=== PATIENT | male | born 1960 | race African-American/Black ===

== ENCOUNTER 2020-01-11 13:07 | Inpatient (IN) ==
[2020-01-11] MEDS ORDERED: SODIUM CHLORIDE 0.9% 1,000 ML IV STA (13:35)
[2020-01-11] MEDS ORDERED: ONDANSETRON 4 MG/2 ML VIAL IV STA (13:35)
[2020-01-11] MEDS ORDERED: PANTOPRAZOLE 40 MG VIAL IV STA (13:35)
[2020-01-11] MEDS ORDERED: METOCLOPRAMIDE 10 MG/2 ML VIAL IV STA (13:35)
[2020-01-11 15:04] LABS: Basophils # 0.1 10*3/uL (0.0-0.2); Basophils % 0.6 % (0.0-0.8); Eosinophils % 0.1 % (0.00-10.9); Hematocrit 35.2 VOL% (42.0-52.0); Hemoglobin 11.5 GM/DL (14.0-18.0); Immature Granulocytes % 0.2 %; Immature Granulocytes Absolute 0.02 #; Lymphocytes % 11.2 % (21.2-54.2); Mean Corpuscular HGB Conc 32.7 GM/DL (32-36); Mean Corpuscular Volume 81.3 FL (87-102); Mean Platelet Volume 10.5 FL (9.6-12.0); Monocytes % 6.1 % (1.7-12.7); Neutrophils % 81.8 % (38.7-73.9); Platelet Count 161 T/CUMM (130-400); Red Blood Count 4.33 MC/CUMM (3.8-5.5); Red Cell Distribution Width 11.8 % (9.3-17.3); White Blood Count 8.6 T/CUMM (4-12)
[2020-01-11 15:13] LABS: PT Patient Result 10.9 SECS (9.8-11.9); Partial Thromboplastin Time 23.4 SECS (23.9-33.8)
[2020-01-11 15:23] LABS: Alanine Aminotransferase 31 U/L (16-61); Albumin 3.6 G/DL (3.4-5.0); Alkaline Phosphatase 66 U/L (45-117); Aspartate Amino Transferase 18 U/L (0-37); Blood Urea Nitrogen 32 MG/DL (7-18); Calcium 8.9 MG/DL (8.5-10.1); Estimated Glom Filtration Rate 110 ML/MIN; Ferritin 256.7 ng/ml (26-388); Glucose 100 MG/DL (74-106); Osmolality,Calculated 283.5 MOS/KG (273-304); Total Protein 6.8 G/DL (6.4-8.3)
[2020-01-11 15:24] LABS: Troponin I 0.121 NG/ML (0.00-0.045)
[2020-01-11] MEDS ORDERED: DOCUSATE SODIUM 100 MG CAPSULE PO PRN (15:56)
[2020-01-11] MEDS ORDERED: GLUCAGON 1 MG VIAL IM PRN (15:56)
[2020-01-11] MEDS ORDERED: ONDANSETRON 4 MG/2 ML VIAL IV PRN (15:56)
[2020-01-11] MEDS ORDERED: DEXTROSE 10% 250 ML BAG IV PRN (15:56)
[2020-01-11] MEDS ORDERED: ACETAMINOPHEN 325 MG TABLET PO PRN (15:56)
[2020-01-11 16:32] LABS: Risk Ratio 3.75; Thyroid Stimulating Hormone 0.42 uIU/ml (0.358-3.74)
[2020-01-11 16:52] LABS: % Iron Saturation 26.4 % (18-50); Ferritin 260.2 ng/ml (26-388)
[2020-01-11] MEDS: SODIUM CHLORIDE 0.9% 1,000 ML IV SCH (20:20)
[2020-01-11] MEDS ORDERED: PANTOPRAZOLE 40 MG TABLET PO SCH (21:00)
[2020-01-12 04:48] LABS: Basophils % 0.8 % (0.0-0.8); Eosinophils # 0.1 10*3/uL (0.0-0.87); Eosinophils % 2.5 % (0.00-10.9); Hematocrit 29.5 VOL% (42.0-52.0); Hemoglobin 9.4 GM/DL (14.0-18.0); Immature Granulocytes % 0.2 %; Immature Granulocytes Absolute 0.01 #; Lymphocytes # 1.8 10*3/uL (1.4-4.0); Mean Corpuscular HGB Conc 31.9 GM/DL (32-36); Mean Corpuscular Volume 82.9 FL (87-102); Neutrophils % 51.5 % (38.7-73.9); Platelet Count 133 T/CUMM (130-400); Red Blood Count 3.56 MC/CUMM (3.8-5.5); Red Cell Distribution Width 11.9 % (9.3-17.3); White Blood Count 4.9 T/CUMM (4-12)
[2020-01-12] MEDS: SODIUM CHLORIDE 0.9% 1,000 ML IV SCH ×2 (05:00→12:55)
[2020-01-12 05:08] LABS: Albumin 2.9 G/DL (3.4-5.0); Bilirubin,Total 0.8 MG/DL (0.2-1.0); Calcium 8.3 MG/DL (8.5-10.1); Osmolality,Calculated 288.8 MOS/KG (273-304); Total Protein 5.7 G/DL (6.4-8.3)
[2020-01-12 05:25] LABS: Hypochromasia 1+; Platelet Estimate Normal
[2020-01-12] MEDS ORDERED: PANTOPRAZOLE 40 MG TABLET PO SCH (09:00)
[2020-01-12] MEDS ORDERED: PANTOPRAZOLE 40 MG VIAL IV SCH ×2 (09:00→12:30)
[2020-01-12 11:52] VITALS: BP 124/75
== END 2020-01-12 17:05 | disposition home or self-care (01) | DRG 312 ==
LOC: N.ED 13:07 → N.EDINP 15:56 → N.TELES 18:07
PROVIDERS: ADMIT Internal Medicine; ATTEND Internal Medicine